=== PATIENT | female | born 1965 | race Caucasian/White ===

== ENCOUNTER → 2021-11-28 | Outpatient (CLI) | LOC: M SOG 07:57 | PROVIDERS: ATTEND Orthopaedic Surgery Adult Reconstructive Orthopaedic Surgery | DX: M25.562 Pain in left knee (principal) ==

== ENCOUNTER 2022-02-17 12:04 | Outpatient (RCR) | payer OTHER | END 2022-02-28 | LOC: M PT 12:04 | PROVIDERS: ATTEND Orthopaedic Surgery Adult Reconstructive Orthopaedic Surgery | DX: M17.12 Unilateral primary osteoarthritis, left knee (principal) ==

== ENCOUNTER → 2022-02-17 | Outpatient (CLI) | payer OTHER ==
[~2022-02-17] MED LIST: HYDR12.55 PO; LEVO25TA5 PO
== END ==
LOC: M RAD 10:13
PROVIDERS: ATTEND Orthopaedic Surgery Adult Reconstructive Orthopaedic Surgery
DX: M17.12 Unilateral primary osteoarthritis, left knee (principal)

== ENCOUNTER → 2022-03-02 | Outpatient (CLI) | payer OTHER | LOC: M LABSMTC 09:32 | PROVIDERS: ATTEND Anesthesiology | DX: Z01.812 Encounter for preprocedural laboratory examination (principal); Z11.52 Encounter for screening for COVID-19 ==

== ENCOUNTER 2022-03-03 06:21 | Observation (INO) | payer OTHER ==
[2022-03-03] VITALS (8 sets, daily range): BP systolic 118–149; BP diastolic 64–85
[~2022-03-03] VITALS: Ht 167.6 cm; Wt 105.4 kg
[~2022-03-03 06:21] MED LIST changes: +ACETAMINOPHEN 500 MG TAB PO ONE; +NAPROXEN 250 MG TAB PO ONE; +NS 1,000 ML IV ONE; +PREGABALIN 25 MG CAP (LYRICA) PO ONE; +ROPIVA 125MG/EPINEPH 0.25MG/CLONID 40MCG/KETOR 15MG IN NS 50ML SYRINGE PA ONE; +ceFAZolin SOD 2 GM in IV 1 EA IV ONE
[2022-03-03] MEDS ORDERED: LR 1,000 ML IV SCH ×3 (06:25→10:10)
[2022-03-03] MEDS ORDERED: TRANEXAMIC ACID 100 MG/ML 10ML VIAL As Ordered ONE ×2 (07:17→08:19)
[2022-03-03] MEDS ORDERED: fentaNYL 100 MCG/2 ML INJECTION As Ordered ONE (08:44)
[2022-03-03] MEDS ORDERED: PHENYLephrine 500MCG 5ML (100MCG/ML) SYRINGE As Ordered ONE (08:44)
[2022-03-03] MEDS ORDERED: propofoL 500 MG/50 ML VIAL As Ordered ONE (08:44)
[2022-03-03] MEDS ORDERED: LIDOCAINE 2% 100MG/5ML SDV (FOR ANES.) As Ordered ONE (08:44)
[2022-03-03] MEDS ORDERED: MIDAZOLAM INJ 2MG/2ML VIAL As Ordered ONE (08:44)
[2022-03-03] MEDS ORDERED: ONDANSETRON 4MG 2ML VIAL As Ordered ONE (08:44)
[2022-03-03] MEDS ORDERED: ePHEDrine SULFATE 25 MG/5 ML(5MG/ML) SYRINGE As Ordered ONE (08:45)
[2022-03-03] MEDS ORDERED: PHENYLEPHRINE 10MG/ML 1ML VIAL As Ordered ONE (09:09)
[2022-03-03] MEDS ORDERED: propofoL 200 MG/20 ML VIAL As Ordered ONE (09:17)
[2022-03-03] MEDS ORDERED: MORPHINE 2 MG/ML 1ML VIAL IV PRN (09:45)
[2022-03-03] MEDS ORDERED: fentaNYL 100 MCG/2 ML INJECTION IV PRN (09:45)
[2022-03-03] MEDS ORDERED: ONDANSETRON 4MG 2ML VIAL IV PRN ×2 (09:45→16:00)
[2022-03-03] MEDS ORDERED: oxyCODONE 5MG TAB PO PRN (09:45)
[2022-03-03] MEDS ORDERED: SENNA 8.6 MG TAB (SENOKOT) PO PRN (10:10)
[2022-03-03] MEDS: oxyCODONE 5MG TAB PO PRN ×3 (14:19→22:43)
[2022-03-03] MEDS ORDERED: HOME MED LIST COMPLETE! XX SCH (15:20)
[2022-03-03] MEDS: ceFAZolin SOD 2 GM in IV 1 EA IV SCH ×2 (15:49→23:36)
[2022-03-03] MEDS: ASCORBIC ACID 500 MG TAB PO SCH (16:01)
[2022-03-03] MEDS: ACETAMINOPHEN TAB 650MG DOSE (2X325MG) PO SCH ×2 (16:02→18:00)
[2022-03-03] MEDS: DOCUSATE SODIUM 100MG CAPSULE PO SCH (21:44)
[2022-03-03] MEDS: ASPIRIN 81MG ENTERIC TABLET PO SCH (21:44)
[2022-03-03] MEDS: NAPROXEN 250 MG TAB PO SCH (21:44)
[2022-03-04 01:56] VITALS: BP 106/60
[2022-03-04] MEDS: oxyCODONE 5MG TAB PO PRN ×3 (04:04→14:26)
[2022-03-04 05:59] VITALS: BP 125/71
[2022-03-04] MEDS ORDERED: LEVOTHYROXINE 25MCG TABLET (0.025MG) PO SCH (06:00)
[2022-03-04 06:12] LABS: HEMATOCRIT 39.7 % (36.0-47.0); HEMOGLOBIN 13.2 g/dl (12.0-15.5); MEAN CORPUSCULAR HEMOGLOBIN 28.9 pg (27.0-33.0); MEAN CORPUSCULAR HGB CONC 33.2 g/dl (32.0-36.5); MEAN CORPUSCULAR VOLUME 86.9 fl (80.0-96.0); PLATELET COUNT, AUTOMATED 335 10^3/uL (150-450); RED BLOOD COUNT 4.57 10^6/uL (4.00-5.40); WHITE BLOOD COUNT 14.5 10^3/uL (4.0-10.0)
[2022-03-04] MEDS: ACETAMINOPHEN TAB 650MG DOSE (2X325MG) PO SCH ×3 (06:18→12:27)
[2022-03-04] MEDS: ASPIRIN 81MG ENTERIC TABLET PO SCH (08:40)
[2022-03-04] MEDS: NAPROXEN 250 MG TAB PO SCH (08:40)
[2022-03-04] MEDS: DOCUSATE SODIUM 100MG CAPSULE PO SCH (08:40)
[2022-03-04] MEDS: ASCORBIC ACID 500 MG TAB PO SCH (08:40)
[2022-03-04] MEDS ORDERED: hydroCHLOROthiazide 12.5 MG CAPSULE PO SCH (09:00)
[2022-03-04 10:00] VITALS: BP 114/65
[2022-03-04 14:00] VITALS: BP 120/74
[2022-03-04] MEDS ORDERED: ACET1TAB55 PO (14:15)
[2022-03-04] MEDS ORDERED: ASPI81TAEC PO (14:15)
[2022-03-04] MEDS ORDERED: ASCO50TA PO (14:15)
[2022-03-04] MEDS ORDERED: SENN18TA PO (14:16)
[2022-03-04] MEDS ORDERED: OXYC-517 PO (14:16)
[2022-03-04] MEDS ORDERED: NAPR-849 PO (14:16)
[2022-03-04] MEDS ORDERED: COLA100C5 PO (14:16)
== END 2022-03-04 15:05 | disposition home health service (06) ==
LOC: M SDC 06:21 → M ED INP 06:22 → M MS5PR 14:35
PROVIDERS: ADMIT Orthopaedic Surgery Adult Reconstructive Orthopaedic Surgery; ATTEND Orthopaedic Surgery Adult Reconstructive Orthopaedic Surgery
DX: M17.12 Unilateral primary osteoarthritis, left knee (principal); E03.9 Hypothyroidism, unspecified; I10 Essential (primary) hypertension; Z79.899 Other long term (current) drug therapy; Z88.0 Allergy status to penicillin
CPT/HCPCS: 27447; 36415; 73560; 85027; 88304; 88311; 97110; 97116; 97161; 97165; 97530; 97535; C1776; J1100; J2370; J2405; S2900

== ENCOUNTER → 2022-03-16 | Outpatient (CLI) | payer OTHER ==
[~2022-03-16] MED LIST changes: +ACET1TAB55 PO; -ACETAMINOPHEN 500 MG TAB PO ONE; +ASCO50TA PO; +ASPI81TAEC PO; +COLA100C5 PO; +NAPR-849 PO; -NAPROXEN 250 MG TAB PO ONE; -NS 1,000 ML IV ONE; +OXYC-517 PO; -PREGABALIN 25 MG CAP (LYRICA) PO ONE; -ROPIVA 125MG/EPINEPH 0.25MG/CLONID 40MCG/KETOR 15MG IN NS 50ML SYRINGE PA ONE; +SENN18TA PO; -ceFAZolin SOD 2 GM in IV 1 EA IV ONE
== END ==
LOC: M SOG 08:01
PROVIDERS: ATTEND Orthopaedic Surgery Adult Reconstructive Orthopaedic Surgery
DX: M17.12 Unilateral primary osteoarthritis, left knee (principal); Z96.652 Presence of left artificial knee joint

== ENCOUNTER → 2022-06-02 | Outpatient (CLI) | payer OTHER | LOC: M SOG 08:02 | PROVIDERS: ATTEND Physician Assistant | DX: M25.531 Pain in right wrist (principal); M25.532 Pain in left wrist ==

== ENCOUNTER 2022-06-15 06:49 | Day surgery (SDC) | payer OTHER ==
[~2022-06-15] VITALS: Ht 167.6 cm; Wt 104.8 kg
[~2022-06-15 06:49] MED LIST changes: +LIDOCAINE 1% SDV 5ML VIAL As Ordered ONE
[2022-06-15] MEDS ORDERED: SCOPOLAMINE 1MG TRANSDERMAL PATCH TOP SCH (07:10)
[2022-06-15] MEDS ORDERED: LR 1,000 ML IV SCH ×2 (07:10→08:40)
[2022-06-15] MEDS ORDERED: LIDOCAINE 2% 100MG/5ML SDV (FOR ANES.) As Ordered ONE (07:17)
[2022-06-15] MEDS ORDERED: MIDAZOLAM INJ 2MG/2ML VIAL As Ordered ONE (07:17)
[2022-06-15] MEDS ORDERED: fentaNYL 100 MCG/2 ML INJECTION As Ordered ONE (07:17)
[2022-06-15] MEDS ORDERED: propofoL 200 MG/20 ML VIAL As Ordered ONE (07:17)
[2022-06-15] MEDS ORDERED: BUPIVACAINE HCL 0.25% 30ML VIAL As Ordered ONE (07:27)
[2022-06-15] MEDS ORDERED: ceFAZolin 2 GM/D5W 50 ML IV BAG As Ordered ONE (07:41)
[2022-06-15] MEDS ORDERED: ONDANSETRON 4MG 2ML VIAL As Ordered ONE (07:57)
[2022-06-15] MEDS ORDERED: KETOROLAC 60MG 2ML VIAL As Ordered ONE (07:57)
[2022-06-15] MEDS ORDERED: LABETALOL 100MG/20ML VIAL As Ordered ONE (08:28)
[2022-06-15] MEDS ORDERED: HYDROMORPHONE HCL 0.5 MG/ 0.5 ML SYRINGE IV PRN (08:40)
[2022-06-15] MEDS ORDERED: oxyCODONE 5MG TAB PO PRN (08:40)
[2022-06-15] MEDS ORDERED: fentaNYL 100 MCG/2 ML INJECTION IV PRN (08:40)
[2022-06-15] MEDS ORDERED: ONDANSETRON 4MG 2ML VIAL IV PRN (08:40)
[2022-06-15] MEDS ORDERED: METOCLOPRAMIDE INJ 10MG/2ML VIAL IV PRN (09:10)
[2022-06-15 10:16] VITALS: BP 138/82
== END 2022-06-15 10:48 | disposition home or self-care (01) ==
LOC: M SDC 06:49
PROVIDERS: ATTEND Orthopaedic Surgery Hand Surgery
DX: M67.432 Ganglion, left wrist (principal); I10 Essential (primary) hypertension; E03.9 Hypothyroidism, unspecified; Z79.899 Other long term (current) drug therapy; Z88.0 Allergy status to penicillin
CPT/HCPCS: 25111; 88305; J0690; J1100; J1885; J2250; J2405; J2765; J3010; S0020